=== PATIENT | male | born 1980 | race Caucasian/White ===

== ENCOUNTER 2017-08-19 21:53 | Emergency (ER) | payer MEDICAID, OTHER ==
[~2017-08-19] VITALS: Ht 177.8 cm; Wt 112.0 kg
[~2017-08-19 21:53] MED LIST: ASPI-516 CHEW; ATOR20TA15 PO; LISI10TA3 PO; METF1000 PO
[2017-08-19 21:58] VITALS: BP 159/89; PULSE 118; RESP 18; TEMP 99.8; O2SAT 98
[2017-08-19] MEDS ORDERED: SODIUM CHLOR 0.9% 1000 ML INJ 1,000 ML IV SCH (22:09)
[2017-08-19] MEDS ORDERED: SODIUM CHLORIDE 0.9% FLUSH 10 ML FLUSH IV FLUSH PRN (22:15)
[2017-08-19] MEDS ORDERED: IBUPROFEN 600 MG TAB PO ONE (22:15)
--- NOTE | 2017-08-19 22:23 | PD ---
HPI Chief Complaint: Cold / Flu Symptoms Time Seen by Provider: 22:06 Travel History International Travel<30 days: No Contact w/Intl Traveler<30days: No Traveled to known affect area: No History of Present Illness HPI 37-year-old male here for evaluation of possible flu. The patient reports fever , generalized malaise, cough. Symptoms started yesterday evening with a cough and progressively worsened throughout the day today. He took an [place]hesaning cold and flu about 2 hours ago which contains acetaminophen. He has not taken anything else for his symptoms. Cough is nonproductive. No dyspnea. No abdominal pain. No vomiting or diarrhea. States that on [place] which was 4 days ago he was around children that were diagnosed with the flu. REPLACED BY [facility] Past Medical History Diabetes: Yes Patient Takes Glucophage: Yes Hypertension: Yes Respiratory: Yes (CHILDHOOD ASTHMA) Tetanus Vaccination: > 5 Years Social History Alcohol Use: Yes (RARE) Tobacco Use: No Substance Use: No Allergies-Medications (Allergen,Severity, Reaction): Coded Allergies: No Known Allergies (Unverified Adverse Reaction, Unknown, 08/19/17) Reported Meds & Prescriptions Reported Meds & Active Scripts Active Metformin (Metformin HCl) 1,000 Mg Tab 1,000 Mg PO BIDPC With meals Aspirin 81 Mg Chew 81 Mg CHEW ONCE 30 Days Atorvastatin (Atorvastatin Calcium) 20 Mg Tab 20 Mg PO HS 30 Days Lisinopril 10 Mg Tab 10 Mg PO DAILY Review of Systems Except as stated in HPI: all other systems reviewed are Neg Physical Exam Narrative GENERAL: Well-developed, well-nourished, comfortable, no apparent distress. SKIN: Focused skin assessment warm/dry. No rash. HEAD: Atraumatic. Normocephalic. EYES: Pupils equal and round. No scleral icterus. No injection or drainage. ENT: Mucous membranes pink and dry. Pharynx with mild erythema without exudates. NECK: Trachea midline. No JVD. No nuchal rigidity. CARDIOVASCULAR: Tachycardic, rate 118, regular. RESPIRATORY: No accessory muscle use. Clear to auscultation. Breath sounds equal bilaterally. GASTROINTESTINAL: Abdomen soft, non-tender, nondistended. MUSCULOSKELETAL: No obvious deformities. No clubbing. No cyanosis. No edema. NEUROLOGICAL: Awake and alert. No obvious cranial nerve deficits. Motor grossly within normal limits. Normal speech. PSYCHIATRIC: Appropriate mood and affect; insight and judgment normal. Data Data Last Documented VS Vital Signs Date Time Temp Pulse Resp B/P (MAP) Pulse Ox O2 Delivery O2 Flow Rate FiO2 08/19/17 22:40 106 18 138/72 (94) 98 Room Air 08/19/17 21:58 99.8 Orders Orders Complete Blood Count With Diff (08/19/17 22:09) Comprehensive Metabolic Panel (08/19/17 22:09) Iv Access Insert/Monitor (08/19/17 22:09) Ecg Monitoring (08/19/17 22:09) Oximetry (08/19/17 22:09) Sodium Chlor 0.9% 1000 Ml Inj (Ns 1000 M (08/19/17 22:09) Sodium Chloride 0.9% Flush (Ns Flush) (08/19/17 22:15) Influenzae A/B Antigen (08/19/17 22:09) Ibuprofen (Motrin) (08/19/17 22:15) Chest, Single Ap (08/19/17 ) Thyroid Stimulating Hormone (08/19/17 22:15) Oseltamivir (Tamiflu) (08/19/17 23:30) Labs Laboratory Tests Test 08/19/17 22:15 White Blood Count 7.1 TH/MM3 Red Blood Count 5.35 MIL/MM3 Hemoglobin 15.0 GM/DL Hematocrit 45.2 % Mean Corpuscular Volume 84.5 FL Mean Corpuscular Hemoglobin 28.0 PG Mean Corpuscular Hemoglobin Concent 33.2 % Red Cell Distribution Width 12.2 % Platelet Count 236 TH/MM3 Mean Platelet Volume 8.1 FL Neutrophils (%) (Auto) 72.2 % Lymphocytes (%) (Auto) 15.7 % Monocytes (%) (Auto) 9.8 % Eosinophils (%) (Auto) 1.0 % Basophils (%) (Auto) 1.3 % Neutrophils # (Auto) 5.1 TH/MM3 Lymphocytes # (Auto) 1.1 TH/MM3 Monocytes # (Auto) 0.7 TH/MM3 Eosinophils # (Auto) 0.1 TH/MM3 Basophils # (Auto) 0.1 TH/MM3 CBC Comment DIFF FINAL Differential Comment Blood Urea Nitrogen 14 MG/DL Creatinine 1.20 MG/DL Random Glucose 204 MG/DL Total Protein 7.2 GM/DL Albumin 3.8 GM/DL Calcium Level 8.7 MG/DL Alkaline Phosphatase 85 U/L Aspartate Amino Transf (AST/SGOT) 42 U/L Alanine Aminotransferase (ALT/SGPT) 67 U/L Total Bilirubin 0.8 MG/DL Sodium Level 134 MEQ/L Potassium Level 3.8 MEQ/L Chloride Level 98 MEQ/L Carbon Dioxide Level 29.7 MEQ/L Anion Gap 6 MEQ/L Estimat Glomerular Filtration Rate 68 ML/MIN Thyroid Stimulating Hormone 3rd Gen 1.890 uIU/ML MDM Medical Decision Making Medical Screen Exam Complete: Yes Emergency Medical Condition: Yes Differential Diagnosis Influenza, viral illness, dehydration, metabolic abnormality, pneumonia Narrative Course Initial vital signs show heart rate 118, blood pressure 159/89, pulse ox 98% on room air, oral temp of 99.8F. CBC: WBC 7.1, hemoglobin 15, hematocrit 45.2, platelets 236, neutrophils 72.2%, monocytes 9.8%. CMP is remarkable for random glucose 204, creatinine 1.2, GFR 68, otherwise unremarkable. Influenza is negative. Chest x-ray shows no acute disease. No evidence of pneumonia. Patient presented with elevated heart rate of 118. After a liter of normal saline IV is heart rate improved to 106. He tells me that he has history of high heart rate and that it usually elevates when he presents to the emergency department. Chart review shows that this is indeed true as documented vital signs have heart rates between 95 and 120 on previous visits. He denies dyspnea or hemoptysis. TSH was performed and is within normal limits. Patient prefers to be discharged home, and I believe he is stable for discharge home with outpatient follow-up with his primary care physician this week. Although the flu test was negative, I believe that the patient is likely suffering from the flu as he was exposed to children who tested positive for the flu and his symptoms seem flulike in nature. He is a fever with upper respiratory symptoms. He will be started on Tamiflu. Tylenol/ibuprofen for fever. He was informed on when to return to the emergency department. He verbalizes understanding and agreement with plan. Diagnosis Primary Impression: Influenza-like illness Referrals: Primary Care Physician 3 days Additional Instructions: Follow-up with your primary care physician this week. Stay hydrated with plenty of fluids. Keep fever under control by alternating between Tylenol and ibuprofen every 3-4 hours. Return to the emergency department for worsening symptoms or any other concerns. Scripts Oseltamivir (Tamiflu) 75 Mg Cap 75 MG PO BID for Mgmt Viral Infection for 5 Days, #10 CAP 0 Refills Prov: Ferdinand Mcarthur MD 08/19/17 Disposition: 01 DISCHARGE HOME Condition: Stable Ferdinand Mcarthur MD Aug 19, 2017 22:23
[2017-08-19 22:31] LABS: AUTOMATED NEUTROPHIL # 5.1 TH/MM3 (1.8-7.7); BASOPHIL # 0.1 TH/MM3 (0-0.2); BASOPHIL % 1.3 % (0.0-2.0); EOSINOPHIL # 0.1 TH/MM3 (0-0.4); HEMATOCRIT 45.2 % (39.0-51.0); LYMPH % 15.7 % (9.0-44.0); LYMPHOCYTE # 1.1 TH/MM3 (1.0-4.8); MEAN CELL VOLUME 84.5 FL (80.0-100.0); MEAN CORPUSCULAR HGB CONC 33.2 % (32.0-36.0); MEAN PLATELET VOLUME 8.1 FL (7.0-11.0); MONO % 9.8 % (0.0-8.0); MONOCYTE # 0.7 TH/MM3 (0-0.9); NEUT % 72.2 % (16.0-70.0); PLATELET COUNT 236 TH/MM3 (150-450); RED BLOOD COUNT 5.35 MIL/MM3 (4.50-5.90); RED CELL DISTRIBUTION WIDTH 12.2 % (11.6-17.2); WHITE BLOOD COUNT 7.1 TH/MM3 (4.0-11.0)
[2017-08-19 22:32] VITALS: O2SAT 98
[2017-08-19 22:40] VITALS: BP 138/72; PULSE 106; RESP 18; O2SAT 98
[2017-08-19 22:40] LABS: CHLORIDE 98 MEQ/L (98-107); SODIUM (NA) 134 MEQ/L (136-145)
[2017-08-19 22:43] LABS: CALCIUM 8.7 MG/DL (8.5-10.1)
[2017-08-19 22:44] LABS: ALBUMIN 3.8 GM/DL (3.4-5.0); BICARBONATE 29.7 MEQ/L (21.0-32.0); BLOOD UREA NITROGEN 14 MG/DL (7-18); GLUCOSE,RANDOM 204 MG/DL (74-106)
[2017-08-19 22:47] LABS: ALT (GPT) 67 U/L (12-78); AST (GOT) 42 U/L (15-37); GLOMERULAR FILTRATION RATE 68 ML/MIN (>89)
[2017-08-19 22:48] LABS: TOTAL BILIRUBIN ADULT 0.8 MG/DL (0.2-1.0); TOTAL PROTEIN 7.2 GM/DL (6.4-8.2)
--- NOTE | 2017-08-19 22:49 | RADRPT ---
EXAM DATE/TIME: 08/19/2017 22:28 [place] COMPARISON: No previous studies available for comparison. INDICATIONS : Cough. MEDICAL HISTORY : Diabetes SURGICAL HISTORY : None. ENCOUNTER: Initial ACUITY: 2 days PAIN SCORE: 3/10 LOCATION: Bilateral chest FINDINGS: A single view of the chest demonstrates the lungs to be symmetrically aerated without evidence of mas s, infiltrate or effusion. The cardiomediastinal contours are unremarkable. Osseous structures are intact. CONCLUSION: No acute disease. There is no evidence of pneumonia. Julien Amin MD on August 19, 2017 at 22:47 Board Certified Radiologist. This report was verified electronically.
[2017-08-19 22:50] LABS: ALKALINE PHOSPHATASE 85 U/L (45-117)
[2017-08-19] MEDS ORDERED: OSELTAMIVIR PHOSPHATE 75 MG CAP PO ONE (23:30)
[2017-08-19] MEDS ORDERED: OSEL75 PO (23:38)
[2017-08-19 23:40] VITALS: BP 151/76; PULSE 104; RESP 18; TEMP 98.9; O2SAT 97
== END 2017-08-20 00:01 | disposition home or self-care (01) ==
LOC: PHEFT 21:53
DX: J11.1 Influenza due to unidentified influenza virus with other respiratory manifestations (principal); E11.9 Type 2 diabetes mellitus without complications; I10 Essential (primary) hypertension
CPT/HCPCS: 71010; 80053; 84443; 85025; 87804; 96360; 99284; J7030